=== PATIENT | male | born 1955 | race Caucasian/White ===

== ENCOUNTER 2022-09-01 07:17 | Outpatient (CLI) | payer OTHER | END 2022-09-01 07:29 | disposition home or self-care (01) | LOC: RX STUDY 07:17 | DX: R19.5 Other fecal abnormalities (principal); K44.9 Diaphragmatic hernia without obstruction or gangrene; K57.30 Diverticulosis of large intestine without perforation or abscess without bleeding; K22.2 Esophageal obstruction; K31.89 Other diseases of stomach and duodenum; K63.3 Ulcer of intestine; R11.0 Nausea; K30 Functional dyspepsia; K59.09 Other constipation ==